=== PATIENT | female | born 1970 | race Caucasian/White ===

== ENCOUNTER 2018-05-18 16:56 | Inpatient (IN) | payer OTHER ==
[2018-05-18 17:17] LABS: #Basophils 0.1 thou/uL (0.0-0.2); #Monocytes 0.8 thou/uL (0.11-0.59); #Neutrophils 5.9 thou/uL (1.40-6.50); %Basophils 0.9 % (0.0-1.0); %Eosinophils 0.1 % (0.0-10.0); %Lymphocytes 30.6 % (21.0-51.0); %Monocytes 8.4 % (0.0-10.0); %Neutrophils 59.9 % (42.0-75.0); Hemoglobin 12.3 g/dL (12.0-16.0); Mean Corpuscular HGB CONC 33.4 g/dL (32.0-36.0); Mean Corpuscular Volume 95.7 fL (78.0-98.0); Mean Platelet Volume 7.5 fL (7.4-10.4); Platelet Count 266 thou/uL (130-400); RBC Distribution Width 10.9 % (11.5-14.5); Red Blood Cell (RBC) Count 3.86 mill/uL (4.20-5.40); White Blood Cell (WBC) Count 9.9 thou/uL (4.8-10.8)
[2018-05-18 17:24] LABS: BHCG - Serum Negative (NEGATIVE); Pregs Control Background? CLEAR/WHITE (CLR/WHITE); Pregs Control Bar Appear? YES (CONTROL BAR)
[2018-05-18 17:40] LABS: ALT (SGPT) 18 U/L (8-55); AST (SGOT) 13 U/L (5-34); Alkaline Phosphatase 148 U/L (40-150); Anion Gap 12 mmol/L (10-20); BUN (Urea Nitrogen) 10 mg/dL (7.0-18.7); Bilirubin, Total 0.2 mg/dL (0.2-1.2); CK (CPK) 134 U/L (29-168); Calc. Creatinine Clearance 0 mL/min (70-130); Calcium 8.6 mg/dL (7.8-10.44); Carbon Dioxide 27 mmol/L (22-29); Chloride 103 mmol/L (98-107); Estimated GFR-MDRD 60; Globulin 2.7 g/dL (2.4-3.5); Glucose 108 mg/dL (70-105); Protein, Total 6.7 g/dL (6.0-8.3); Sodium 139 mmol/L (136-145)
[2018-05-18 17:41] LABS: Acetaminophen Less than 6.0 mcg/mL (10.0-30.0); Alcohol Less than 10 mg/dL (Less than 10); Salicylate Less than 8.0 mg/dL (15.0-30.0)
[2018-05-18 17:46] LABS: Potassium 2.9 mmol/L (3.5-5.1)
[2018-05-18 18:58] LABS: Bilirubin Negative (Negative); Blood, Urine Negative (Negative); Clarity CLOUDY (Clear); Glucose, Urine (Dipstick) Negative (Negative); Leukocyte Trace (Negative); Nitrite Negative (Negative); Protein, Urine (Dipstick) Trace mg/dL (Neg-Trace); Specific Gravity, Urine 1.018 (1.002-1.036)
[2018-05-18 19:03] LABS: Bacteria/HPF None Seen HPF (None Seen); Hyaline Casts/LPF 0-3 HYALINE CAST LPF (0-3 Hyaline); Pathc Cast-AUWi Flag 0.58 (0-2.49); RBC/HPF 0-3 HPF (0-3); WBC/HPF 0-3 HPF (0-3)
[2018-05-18 19:11] LABS: Amphetamine Detected (NotDetected); Benzodiazepine Screen Not Detected (NotDetected); Cocaine Metabolite Screen Not Detected (NotDetected); Medtox Reader # READER 4; Methamphetamine Detected (NotDetected); Opiate Screen Not Detected (NotDetected); Phencyclidine (PCP) Not Detected (NotDetected); THC/Cannabinoid Screen Not Detected (NotDetected)
[2018-05-18 19:12] LABS: Barbiturates Screen Not Detected (NotDetected); Medtox Control Line Valid? VALID (VALID); Methadone Not Detected (NotDetected); Oxycodone Screen Not Detected (NotDetected); Tricyclic Screen Detected (NotDetected)
[2018-05-18 19:29] LABS: Crystals/HPF None Seen HPF (Negative); Oval Fat Bodies/HPF None Seen HPF (None Seen); Renal Epithelial None Seen HPF (0-3); Transitional Epithelial NONE SEEN HPF (0-3); Trichomonas/HPF None Seen HPF (None Seen)
[2018-05-18] MEDS ORDERED: Ondansetron PF 4 MG/2 ML Vial IVP PRN (20:08)
[2018-05-18] MEDS ORDERED: Sodium Chloride 0.9% 1,000 ML IV SCH (20:15)
[2018-05-18] MEDS ORDERED: Potassium Chloride 10 MEQ in Premix Bag 1 BAG IVPB SCH (21:15)
[2018-05-18] MEDS: Sodium Chloride 0.9% 1,000 ML IV SCH (22:02)
[2018-05-18 22:05] VITALS: BMI 28.7
[2018-05-18] MEDS ORDERED: Promethazine 25 MG TAB PO PRN (22:27)
--- NOTE | 2018-05-18 23:20 | HP ---
PRIMARY CARE DOCTOR: Dr. Robin Chauhan. CODE STATUS: Full code. TIME OF EVALUATION: 8:20 pm. CHIEF COMPLAINT: The patient overdosed on gabapentin, reportedly took 32 tablets of 600 mg. HPI information has been gathered from the ER staff. The patient is sedated. HISTORY OF PRESENT ILLNESS: The patient is a 48-year-old female patient with no reported past medical history. The patient was having the situation; it looks like the patient was having to go to [facility] and she had an intentional overdose of 32 tablets of 600 mg of gabapentin. She also tested positive for methamphetamine, tricyclics, amphetamine; she has been evaluated in the ER. The patient is going to ICU. The patient is drowsy, sedated, arousable, unable to give any history, vital signs are within normal limits except blood pressures in the low side in the 90s. The patient is getting hydration right now, symptoms are severe. REVIEW OF SYSTEMS: Patient is unable to give any information. The patient is sedated, protecting airways. PAST MEDICAL HISTORY: Unable to obtain. FAMILY HISTORY: Unable to obtain. SOCIAL HISTORY: Patient was going to [facility] and had suicidal attempt. Unable to get any further social history. PSYCHIATRIC HISTORY: Unable to obtain. ALLERGIES: ZOFRAN AND DOXYCYCLINE. REPORTED MEDICATIONS: As per records, 1. Gabapentin. 2. Topiramate. 3. Oxcarbazepine. 4. Furosemide. 5. Amitriptyline 6. Benztropine. PHYSICAL EXAMINATION: VITAL SIGNS: On presentation, blood pressure 101/62, heart rate 87, respiratory rate was 13, temperature 97.4, oxygen saturation 99% on room air. The blood pressure has been in the low 90s to 100. The patient has received hydration. Rest of vitals has remained stable. GENERAL APPEARANCE: The patient is sedated, responds to voice and painful stimulation, disoriented, unable to speak coherently. HEENT: Eyes, normal conjunctivae. Moist oral mucosa. Anicteric. No JVD. RESPIRATORY: Bilateral air entry. No rales. No wheezes. Symmetric expansion. CARDIOVASCULAR: Normal rate, blood pressure in the lower side. Regular rhythm. No murmurs. No gallop. No edema. ABDOMEN: Soft. Normal bowel sounds. MUSCULOSKELETAL: Baseline range of motion and strength. No evidence of any new weakness. SKIN: Warm, intact. No pallor. No rash. No redness. Peripheral pulses are present. Capillary refill seems to be intact. NEUROLOGIC: The patient is sedated, unable to fully explore. No evidence of any significant weakness. PSYCHIATRIC: Unable to explore. LABORATORY DATA/IMAGING: EKG was reviewed. The patient has normal sinus rhythm with a rate of 84, NM 136, QRS 94, prolonged QT 496. Labs were reviewed. White count 9.9, hemoglobin 12.3, MCV 95.7, platelet count 266. Chemistry; sodium 139, potassium 2.9, chloride 103, carbon dioxide 27, anion gap 12, BUN 10, creatinine 1.0, GFR 60, glucose 108, calcium 9.6. Total bilirubin 0.2, AST 13, ALT 18, alkaline phosphatase 148. CK 134. Serum total protein 6.7, albumin 4.0, globulin 2.7. TSH 0.8. Urine was negative. Toxicology, salicylate less than 8, acetaminophen was negative, tricyclic was detected, phencyclidine not detected, amphetamines detected and methamphetamine detected. ASSESSMENT AND PLAN: The patient will be placed in the hospital with the following medical problems: 1. Intentional overdose, suicidal attempt due to the social problems, the patient will be placed in the ICU with monitor one-to-one, the patient is sedated, unable to get any further information at this point. 2. Drug overdose, intentional. The patient tested positive for methamphetamine and tricyclics, also reportedly took gabapentin. The patient is protecting airways, saturation is normal. Vital signs are normal except for the blood pressure that is borderline. The patient has some hydration, we will monitor in ICU and will treat accordingly with supportive care. 3. Critical care time, more than 40 minutes spent in bedside assessment, medication reconciliation, gathering information, review and elaboration of records. Job ID: [id number]
[2018-05-18] MEDS ORDERED: Potassium Chloride 20 MEQ TAB PO SCH (23:45)
[2018-05-19 04:37] LABS: #Monocytes 0.4 thou/uL (0.11-0.59); #Neutrophils 3.7 thou/uL (1.40-6.50); %Basophils 0.5 % (0.0-1.0); %Eosinophils 0.4 % (0.0-10.0); %Monocytes 7.1 % (0.0-10.0); Hemoglobin 10.4 g/dL (12.0-16.0); Mean Corpuscular HGB CONC 33.4 g/dL (32.0-36.0); Mean Corpuscular Hemoglobin 32.6 pg (27.0-31.0); Mean Corpuscular Volume 97.8 fL (78.0-98.0); Mean Platelet Volume 7.7 fL (7.4-10.4); Platelet Count 227 thou/uL (130-400); RBC Distribution Width 11.2 % (11.5-14.5); Red Blood Cell (RBC) Count 3.19 mill/uL (4.20-5.40); White Blood Cell (WBC) Count 6.2 thou/uL (4.8-10.8)
[2018-05-19 05:01] LABS: Anion Gap 11 mmol/L (10-20); BUN (Urea Nitrogen) 6 mg/dL (7.0-18.7); Calc. Creatinine Clearance 113 mL/min (70-130); Calcium 7.8 mg/dL (7.8-10.44); Carbon Dioxide 20 mmol/L (22-29); Chloride 113 mmol/L (98-107); Estimated GFR-MDRD 87; Glucose 86 mg/dL (70-105); Potassium 3.8 mmol/L (3.5-5.1); Sodium 140 mmol/L (136-145)
[2018-05-19] MEDS: Sodium Chloride 0.9% 1,000 ML IV SCH ×3 (05:34→21:59)
[2018-05-19] MEDS ORDERED: Topiramate 100 MG TAB PO SCH (10:15)
[2018-05-19] MEDS ORDERED: OXcarbazepine 300 MG TAB PO SCH (10:15)
[2018-05-19] MEDS ORDERED: Furosemide 40 MG TAB PO SCH (10:15)
[2018-05-19] MEDS ORDERED: Amitriptyline HCl 25 MG TAB PO SCH (10:15)
[2018-05-19] MEDS: Benztropine 1 MG TAB PO SCH ×2 (10:21→19:55)
[2018-05-19] MEDS: Furosemide 40 MG TAB PO SCH (10:21)
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
--- NOTE | 2018-05-19 18:56 | PDOC.PN ---
- Subjective Encounter Start Date: 05/19/18 Encounter Start Time: 09:20 Pt seen for followup re: drug overdose. Denies chest pain, shortness of breath , fevers or chills. - Objective Resuscitation Status - Order Detail: 05/18/18 20:08 Resuscitation Status Routine Resuscitation Status: FULL: Full Resuscitation MAR Reviewed: Yes Vital Signs & Weight: Vital Signs (12 hours) Temp Pulse Ox 05/19/18 17:00 98.0 F 05/19/18 12:00 98.3 F 05/19/18 08:00 98.0 F 100 Weight Admit Weight 162 lb 4.163 oz Weight 162 lb 4.163 oz Most Recent Monitor Data Heart Rate from ECG 84 NIBP 100/59 NIBP BP-Mean 72 Respiration from ECG 17 SpO2 99 I&O: 05/18/18 05/19/18 05/20/18 06:59 06:59 06:59 Intake Total 1645 2210 Output Total 1540 1250 Balance 105 960 Result Diagrams: 05/19/18 04:14 05/19/18 04:14 EKG Reviewed by me: Yes (Tele: NSR) Phys Exam - Physical Examination Constitutional: NAD HEENT: moist MMs, sclera anicteric, oral pharynx no lesions, 2+ tonsils Neck: no nodes, no JVD, supple, full ROM Respiratory: clear to auscultation bilateral Cardiovascular: RRR, no rub S1, S2 Gastrointestinal: soft, non-tender, no distention, positive bowel sounds Neurological: moves all 4 limbs Psychiatric: normal affect Dx/Plan (1) Drug overdose Code(s): T50.901A - POISONING BY UNSP DRUG/MEDS/BIOL SUBST, ACCIDENTAL, INIT Status: Acute Comment: medically stable so far (2) Methamphetamine abuse Code(s): F15.10 - OTHER STIMULANT ABUSE, UNCOMPLICATED Status: Chronic Comment: pt counseled re: cessation of meth use - Plan * . Review of Systems - Review of Systems Constitutional: negative: fever, chills, sweats, weakness, malaise Respiratory: negative: Cough, Shortness of Breath, SOB with Excertion, Pleuritic Pain, Wheezing Cardiovascular: negative: chest pain, palpitations, orthopnea, paroxysmal nocturnal dyspnea, edema, light headedness Gastrointestinal: negative: Nausea, Vomiting, Abdominal Pain, Diarrhea, Constipation, Melena, Hematochezia Genitourinary: negative: Dysuria, Frequency, Incontinence, Hematuria, Retention Skin: negative: Rash, Lesions, Dariusz, Bruising - Medications/Allergies Allergies/Adverse Reactions: Allergies Allergy/AdvReac Type Severity Reaction Status Date / Time ondansetron [From Zofran] Allergy Severe Hives Verified 05/19/18 00:18 doxycycline AdvReac Severe Hives Verified 05/19/18 00:18 Medications: Current Medications Amitriptyline HCl (Elavil) 25 mg PO BID [facility] Benztropine Mesylate (Cogentin) 2 mg PO BID [facility] Last Admin: 05/19/18 10:21 Dose: 2 mg Furosemide (Lasix) 40 mg PO DAILY [facility] Last Admin: 05/19/18 10:21 Dose: 40 mg Sodium Chloride (Normal Saline 0.9%) 1,000 mls @ 125 mls/hr IV .Q8H [facility] Last Admin: 05/19/18 13:20 Dose: 1,000 mls Oxcarbazepine (Trileptal) 600 mg PO BID [facility] Promethazine HCl (Phenergan) 12.5 mg PO Q6H PRN PRN Reason: Nausea/Vomiting Last Admin: 05/19/18 16:55 Dose: 12.5 mg Sodium Chloride (Flush - Normal Saline) 10 ml IVF Q12HR [facility] Last Admin: 05/19/18 10:23 Dose: 10 ml Sodium Chloride (Flush - Normal Saline) 10 ml IVF PRN PRN PRN Reason: Saline Flush Topiramate (Topamax) 200 mg PO BID [facility]
[2018-05-19] MEDS: Amitriptyline HCl 25 MG TAB PO SCH (19:55)
[2018-05-19] MEDS: OXcarbazepine 300 MG TAB PO SCH (19:55)
[2018-05-19] MEDS: Topiramate 100 MG TAB PO SCH (19:56)
[2018-05-19] MEDS ORDERED: BENZTROPINE MESYLATE PO SCH (21:00)
[2018-05-19] MEDS ORDERED: OXcarbazepine 600 MG TAB PO SCH (21:00)
[2018-05-19] MEDS ORDERED: TOPIRAMATE 200 MG PO SCH (21:00)
[2018-05-19] MEDS ORDERED: Acetaminophen 325 MG TAB PO PRN (23:30)
[2018-05-20] MEDS: Sodium Chloride 0.9% 1,000 ML IV SCH ×3 (05:05→21:03)
[2018-05-20] MEDS: Topiramate 100 MG TAB PO SCH ×2 (08:33→21:02)
[2018-05-20] MEDS: Benztropine 1 MG TAB PO SCH ×2 (08:34→21:01)
[2018-05-20] MEDS: Furosemide 40 MG TAB PO SCH (08:34)
[2018-05-20] MEDS: Amitriptyline HCl 25 MG TAB PO SCH ×2 (08:34→21:02)
[2018-05-20] MEDS: OXcarbazepine 300 MG TAB PO SCH ×2 (08:34→21:03)
[2018-05-21 00:12] VITALS: BP 91/64; TEMP 96.2
--- NOTE | 2018-05-21 02:09 | DIS ---
DATE OF ADMISSION: 05/18/2018 DATE OF DISCHARGE: 05/20/2018 PRIMARY CARE PROVIDER: Dr. Lacho Pate. DISCHARGE DIAGNOSES: 1. Drug overdose. 2. Severe depression. 3. Hypokalemia. CONDITION OF THE PATIENT ON THE DAY OF DISCHARGE: Stable. I assessed Ms. Moody on 05/20/2018. Please refer to my daily progress note for further details regarding this [id number] encounter. CONSULTATIONS DURING THIS HOSPITALIZATION: Pulmonary Critical Care Medicine, Dr. Garcia. HOSPITAL COURSE: Ms. Moody is a pleasant 48-year-old lady who was admitted to [facility] on 05/18/2018, following gabapentin overdose. Poison Control Center was contacted and their instructions were carried out. She was medically cleared. She has been evaluated by [facility], who recommended inpatient psychiatric therapy. She is currently awaiting a bed at [facility]. DISCHARGE MEDICATIONS: 1. Amitriptyline 25 mg 2 times a day. 2. Benztropine 1 mg 2 times a day. 3. Lasix 40 mg daily. 4. Trileptal 600 mg 2 times a day. 5. Topamax 200 mg 2 times a day. Many thanks for allowing me to participate in your patient's care. Please feel free to contact me with any questions or concerns. DISCHARGE DESTINATION: Inpatient psychiatric facility. TOTAL AMOUNT OF TIME SPENT COORDINATING THIS DISCHARGE: 33 minutes. Job ID: [id number]
== END 2018-05-20 23:45 | DRG 918 ==
LOC: ERS 16:56 → EDBD 16:56 → CCU 21:50 → T4-A 05-19 21:50
PROVIDERS: ADMIT Hospitalist; ATTEND Hospitalist
DX: T42.6X2A Poisoning by other antiepileptic and sedative-hypnotic drugs, intentional self-harm, initial encounter (principal); Z88.8 Allergy status to other drugs, medicaments and biological substances; Z79.899 Other long term (current) drug therapy; F32.9 Major depressive disorder, single episode, unspecified; E87.6 Hypokalemia; F15.10 Other stimulant abuse, uncomplicated
CPT/HCPCS: 36415; 51701; 80048; 80053; 80306; 80307; 81003; 81015; 82550; 84443; 84703; 85025; 93005; 96360; 96361; J3480; Q0169

== ENCOUNTER 2018-08-10 10:49 | Emergency (ER) | payer OTHER ==
--- NOTE | 2018-08-10 11:19 | CT ---
CT head without contrast: Multiple axial tomograms obtained through the head without IV enhancement. INDICATIONS: Change in mental status. Confusion. COMPARISON: None FINDINGS: Ventricles have normal size and position. No evidence of intracranial mass, hemorrhage, edema, or infarct. Visualized sinuses and mastoids appear clear. Bony calvarium appears unremarkable. IMPRESSION: No acute finding
[2018-08-10 11:48] LABS: #Lymphocytes 1.2 thou/uL (1.20-3.40); #Monocytes 0.8 thou/uL (0.11-0.59); #Neutrophils 5.3 thou/uL (1.40-6.50); %Basophils 0.3 % (0.0-1.0); %Eosinophils 0.5 % (0.0-10.0); %Lymphocytes 16.3 % (21.0-51.0); %Monocytes 10.3 % (0.0-10.0); %Neutrophils 72.6 % (42.0-75.0); Hemoglobin 12.3 g/dL (12.0-16.0); Mean Corpuscular HGB CONC 32.2 g/dL (32.0-36.0); Mean Corpuscular Hemoglobin 30.4 pg (27.0-31.0); Mean Corpuscular Volume 94.5 fL (78.0-98.0); Mean Platelet Volume 8.1 fL (7.4-10.4); Platelet Count 254 thou/uL (130-400); RBC Distribution Width 11.3 % (11.5-14.5); Red Blood Cell (RBC) Count 4.04 mill/uL (4.20-5.40); White Blood Cell (WBC) Count 7.3 thou/uL (4.8-10.8)
[2018-08-10 12:05] LABS: BHCG - Serum Negative (NEGATIVE); Pregs Control Background? CLEAR/WHITE (CLR/WHITE); Pregs Control Bar Appear? YES (CONTROL BAR)
[2018-08-10 12:20] LABS: Bilirubin Negative (Negative); Blood, Urine Negative (Negative); Clarity CLOUDY (Clear); Glucose, Urine (Dipstick) Negative (Negative); Leukocyte Negative (Negative); Nitrite Negative (Negative); Protein, Urine (Dipstick) Trace mg/dL (Neg-Trace)
[2018-08-10 12:28] LABS: Amphetamine Detected (NotDetected); Barbiturates Screen Not Detected (NotDetected); Benzodiazepine Screen Not Detected (NotDetected); Cocaine Metabolite Screen Not Detected (NotDetected); Medtox Control Line Valid? VALID (VALID); Medtox Reader # READER 1; Methadone Not Detected (NotDetected); Methamphetamine Not Detected (NotDetected); Opiate Screen Not Detected (NotDetected); Oxycodone Screen Not Detected (NotDetected); Phencyclidine (PCP) Not Detected (NotDetected); THC/Cannabinoid Screen Not Detected (NotDetected); Tricyclic Screen Detected (NotDetected)
[2018-08-10 12:50] LABS: ALT (SGPT) 53 U/L (8-55); AST (SGOT) 99 U/L (5-34); Albumin 4.1 g/dL (3.5-5.0); Alkaline Phosphatase 144 U/L (40-150); Anion Gap 18 mmol/L (10-20); BUN (Urea Nitrogen) 10 mg/dL (7.0-18.7); Bilirubin, Total 0.4 mg/dL (0.2-1.2); Calc. Creatinine Clearance 0 mL/min (70-130); Calcium 9.3 mg/dL (7.8-10.44); Carbon Dioxide 21 mmol/L (22-29); Chloride 102 mmol/L (98-107); Estimated GFR-MDRD 62; Globulin 3.1 g/dL (2.4-3.5); Glucose 85 mg/dL (70-105); Potassium 3.9 mmol/L (3.5-5.1); Protein, Total 7.2 g/dL (6.0-8.3); Sodium 137 mmol/L (136-145)
[2018-08-10 13:08] LABS: Acetaminophen Less than 6.0 mcg/mL (10.0-30.0); Alcohol Less than 10 mg/dL (Less than 10); Salicylate Less than 8.0 mg/dL (15.0-30.0)
[2018-08-10 13:43] LABS: CK (CPK) 9159 U/L (29-168)
== END 2018-08-10 14:30 ==
LOC: ERS 10:49
DX: S70.11XA Contusion of right thigh, initial encounter (principal); S30.811A Abrasion of abdominal wall, initial encounter; T22.10XA Burn of first degree of shoulder and upper limb, except wrist and hand, unspecified site, initial encounter; T21.14XA Burn of first degree of lower back, initial encounter; T20.16XA Burn of first degree of forehead and cheek, initial encounter; F15.10 Other stimulant abuse, uncomplicated; B86 Scabies; X58.XXXA Exposure to other specified factors, initial encounter
CPT/HCPCS: 70450; 80053; 80306; 80307; 81003; 82550; 84484; 84703; 85025; 93005; A4353

== ENCOUNTER 2018-08-10 21:52 | Emergency (ER) | payer OTHER ==
[2018-08-10] MEDS ORDERED: levETIRAcetam 500 MG TAB PO SCH (22:45)
== END 2018-08-10 23:05 ==
LOC: EEVIPCON 21:52 → ERS 21:52
DX: G40.909 Epilepsy, unspecified, not intractable, without status epilepticus (principal)
CPT/HCPCS: 70450; 80053; 80306; 80307; 81003; 82550; 84484; 84703; 85025; 93005; 99284; A4353